=== PATIENT | female | born 1955 | race African-American/Black ===

== ENCOUNTER 2024-01-03 17:39 | Observation (INO) | payer OTHER ==
[2024-01-03 19:50] LABS: BASO % 1.2 % (0-2.0); EOS % 1.3 % (0-4.5); HEMATOCRIT 40.9 % (32.4-45.2); HEMOGLOBIN 14.4 GM/dL (10.7-15.3); LYMPH % 25.8 % (8-40); MCH 30.6 pg (25.7-33.7); MCHC 35.3 g/dl (32.0-36.0); MEAN CELL VOLUME 86.5 fl (80-96); MEAN PLT VOLUME 9.7 fl (7.5-11.1); MONO % 5.8 % (3.8-10.2); NEUT % 65.9 % (42.8-82.8); PLATELET COUNT 308 10^3/uL (134-434); RBC 4.72 M/mm3 (3.60-5.2)
[2024-01-03 19:58] LABS: INR 1.14 (0.83-1.09); PROTHROMBIN TIME (PATIENT) 13.2 SEC (9.7-13.0)
[2024-01-03 20:01] LABS: ACTIVATED PTT 30.9 SECONDS (25.2-36.5)
[2024-01-03 20:08] LABS: CHLORIDE 107 mmol/L (98-107); SODIUM 136 mmol/L (136-145)
[2024-01-03 20:10] LABS: ALBUMIN 3.8 g/dl (3.4-5.0); BLOOD UREA NITROGEN 12.1 mg/dL (7-18); CALCIUM 9.7 mg/dL (8.5-10.1); CO2 25 mmol/L (21-32); GLUCOSE,RANDOM 135 mg/dL (74-106)
[2024-01-03 20:13] LABS: CREATININE 0.9 mg/dL (0.55-1.3)
[2024-01-03 20:14] LABS: ANION GAP 4 mmol/L (4-13); POTASSIUM 7.5 mmol/L (3.5-5.1); SGOT/AST 99 U/L (15-37); SGPT/ALT 32 U/L (13-61)
[2024-01-03 20:15] LABS: BILIRUBIN,TOTAL 0.6 mg/dL (0.2-1); TOT PROT 8.2 g/dl (6.4-8.2)
[2024-01-03 20:16] LABS: ALK PHOS 77 U/L (45-117)
[2024-01-03] MEDS: FAMOTIDINE 20 MG/50 ML IVPB 20 MG/50 ML MG IVPB ONE ×2 (20:36→20:37)
[2024-01-03] MEDS ORDERED: FAMOTIDINE 20 MG TABLET ONE (20:38)
[2024-01-03] MEDS: FAMOTIDINE 10 MG TABLET PO ONE (20:43)
[2024-01-03 21:01] LABS: URINE APPEARANCE CLEAR; URINE BILIRUBIN NEGATIVE (NEGATIVE); URINE COLOR YELLOW; URINE GLUCOSE (UA) NEGATIVE (NEGATIVE); URINE KETONE 1+ (NEGATIVE); URINE LEUK ESTERASE NEGATIVE (NEGATIVE); URINE NITRITE NEGATIVE (NEGATIVE); URINE PROTEIN NEGATIVE (NEGATIVE); URINE UROBILINOGEN 0.2 mg/dL (0.2-1.0)
[2024-01-03 21:17] LABS: N-TERMINAL BNP 56.3 pg/ml (5-125)
[2024-01-03 21:19] LABS: POTASSIUM 3.8 mmol/L (3.5-5.1)
[2024-01-03 21:20] LABS: CALCIUM 9.7 mg/dL (8.5-10.1)
[2024-01-03 21:21] LABS: BLOOD UREA NITROGEN 10.5 mg/dL (7-18)
[2024-01-03 21:24] LABS: CREATININE 0.7 mg/dL (0.55-1.3)
[2024-01-04] MEDS ORDERED: MELATONIN 5 MG TABLETS ONE (01:30)
[2024-01-04] MEDS: MELATONIN 5 MG TABLETS PO ONE (01:35)
[2024-01-04 07:13] LABS: BASO % 0.6 % (0-2.0); EOS % 1.2 % (0-4.5); LYMPH % 29.3 % (8-40); MCH 30.3 pg (25.7-33.7); MCHC 35.1 g/dl (32.0-36.0); MEAN CELL VOLUME 86.5 fl (80-96); MEAN PLT VOLUME 9.4 fl (7.5-11.1); MONO % 7.9 % (3.8-10.2); PLATELET COUNT 181 10^3/uL (134-434); RBC 4.62 M/mm3 (3.60-5.2); RDW 13.3 % (11.6-15.6); WHITE BLOOD COUNT 8.6 K/mm3 (4.0-10.0)
[2024-01-04 08:02] LABS: POTASSIUM 3.8 mmol/L (3.5-5.1)
[2024-01-04 08:10] LABS: CALCIUM 9.6 mg/dL (8.5-10.1)
[2024-01-04 08:11] LABS: ALBUMIN 3.4 g/dl (3.4-5.0); BLOOD UREA NITROGEN 10.9 mg/dL (7-18); MAGNESIUM 1.9 mg/dL (1.8-2.4)
[2024-01-04 08:14] LABS: BILIRUBIN,TOTAL 0.7 mg/dL (0.2-1); CREATININE 0.7 mg/dL (0.55-1.3); TOT PROT 7.1 g/dl (6.4-8.2)
[2024-01-04] MEDS: ENOXAPARIN NA (PORCINE) 40 MG/0.4 ML DISP.SYRIN SQ SCH (10:53)
[2024-01-04] MEDS: LOSARTAN POTASSIUM 25 MG TABLET PO ONE (10:53)
[2024-01-04] MEDS: ASPIRIN COATED 81 MG TABLET.EC PO SCH (10:53)
[2024-01-04 11:09] VITALS: BMI 29.4
[2024-01-04] MEDS: LOSARTAN POTASSIUM 25 MG TABLET PO SCH (12:31)
[2024-01-04] MEDS: PANTOPRAZOLE 40 MG TABLET PO SCH (14:59)
[2024-01-04] MEDS: SODIUM CHLORIDE 1,000 ML IV SCH (15:00)
[2024-01-04] MEDS: MAG HYDROX/AL HYDROX/SIMETH 30 ML UNIT-DOSE CUP PO ONE (21:18)
[2024-01-04] MEDS: MELATONIN 5 MG TABLETS PO PRN (21:18)
[2024-01-04] MEDS: BRIMONIDINE TARTRATE 0.2% OPHTHALMIC 5 ML BOTTLE OU SCH (21:18)
[2024-01-04] MEDS: amLODIPine BESYLATE 5 MG TABLET (FP) PO SCH (21:19)
[2024-01-05 05:33] VITALS: RESP 18
[2024-01-05 07:16] LABS: HEMATOCRIT 36.4 % (32.4-45.2); MCH 30.6 pg (25.7-33.7); MCHC 35.6 g/dl (32.0-36.0); MEAN CELL VOLUME 85.9 fl (80-96); MEAN PLT VOLUME 8.8 fl (7.5-11.1); PLATELET COUNT 219 10^3/uL (134-434); RBC 4.24 M/mm3 (3.60-5.2); RDW 13.9 % (11.6-15.6); WHITE BLOOD COUNT 7.9 K/mm3 (4.0-10.0)
[2024-01-05 07:38] LABS: POTASSIUM 4.3 mmol/L (3.5-5.1)
[2024-01-05 07:46] LABS: ALBUMIN 3.1 g/dl (3.4-5.0); BLOOD UREA NITROGEN 11.2 mg/dL (7-18); CALCIUM 9.1 mg/dL (8.5-10.1)
[2024-01-05 07:49] LABS: CREATININE 0.7 mg/dL (0.55-1.3)
[2024-01-05 07:51] LABS: BILIRUBIN,TOTAL 0.6 mg/dL (0.2-1); TOT PROT 6.4 g/dl (6.4-8.2)
[2024-01-05] MEDS: MAG HYDROX/AL HYDROX/SIMETH 30 ML UNIT-DOSE CUP PO PRN (08:52)
[2024-01-05] MEDS: LOSARTAN POTASSIUM 25 MG TABLET PO SCH (09:32)
[2024-01-05 09:53] VITALS: BP 115/71; PULSE 74; TEMP 97.9
[2024-01-05] MEDS ORDERED: PANTOPRAZOLE SODIUM 40 MG VIAL IVPUSH SCH (10:00)
== END 2024-01-05 12:12 | disposition home or self-care (01) ==
LOC: JER 17:39 → UNDOADMOB 23:45 → JERBED 23:45 → OBSVTOIN 01-04 03:37 → INTOOBSV 01-04 03:37 → JERBED 01-04 09:36 → J4W 01-04 10:03
PROVIDERS: ADMIT Internal Medicine; ATTEND Internal Medicine
PROC: 3E023GC Introduction of Other Therapeutic Substance into Muscle, Percutaneous Approach (ICD-10-PCS; principal; 2024-01-04)
PROC: 3E0337Z Introduction of Electrolytic and Water Balance Substance into Peripheral Vein, Percutaneous Approach (ICD-10-PCS; 2024-01-04)
DX: I95.1 Orthostatic hypotension (principal); R00.2 Palpitations; K21.9 Gastro-esophageal reflux disease without esophagitis; R53.83 Other fatigue; I10 Essential (primary) hypertension; R39.198 Other difficulties with micturition; R20.8 Other disturbances of skin sensation; I45.10 Unspecified right bundle-branch block; Z90.79 Acquired absence of other genital organ(s)
CPT/HCPCS: 0241U-QW; 36415; 71045-TC-FY; 80048; 80053; 81003; 83735; 83880; 84100; 84436; 84443; 84484; 85025; 85027; 85379; 85610; 85730; 87086; 93005; 93010; 93306-TC; 96372; 99285-25; G0378

== ENCOUNTER 2024-01-25 03:15 | Observation (INO) | payer OTHER ==
[2024-01-25 03:22] VITALS: TEMP 97.8
[2024-01-25] MEDS ORDERED: ACETAMINOPHEN INJECTION 100 ML IVPB ONE (04:09)
[2024-01-25] MEDS ORDERED: MAG HYDROX/AL HYDROX/SIMETH 30 ML UNIT-DOSE CUP ONE ×4 (04:10→14:15)
[2024-01-25 04:40] LABS: BASO % 0.9 % (0-2.0); EOS % 1.1 % (0-4.5); HEMATOCRIT 42.8 % (32.4-45.2); HEMOGLOBIN 15.3 GM/dL (10.7-15.3); LYMPH % 22.2 % (8-40); MCHC 35.7 g/dl (32.0-36.0); MEAN CELL VOLUME 86.9 fl (80-96); MEAN PLT VOLUME 8.4 fl (7.5-11.1); MONO % 5.2 % (3.8-10.2); NEUT % 70.6 % (42.8-82.8); PLATELET COUNT 275 10^3/uL (134-434); RBC 4.93 M/mm3 (3.60-5.2); RDW 14.3 % (11.6-15.6); WHITE BLOOD COUNT 7.7 K/mm3 (4.0-10.0)
[2024-01-25] MEDS: MAG HYDROX/AL HYDROX/SIMETH 30 ML UNIT-DOSE CUP PO ONE (04:41)
[2024-01-25] MEDS: ACETAMINOPHEN 1000 MG/100 ML BAG IVPB ONE (04:42)
[2024-01-25 04:48] LABS: INR 1.05 (0.83-1.09); PROTHROMBIN TIME (PATIENT) 12.2 SEC (9.7-13.0)
[2024-01-25 04:50] LABS: ACTIVATED PTT 33.6 SECONDS (25.2-36.5)
[2024-01-25 05:00] LABS: ALBUMIN 3.8 g/dl (3.4-5.0); BLOOD UREA NITROGEN 9.7 mg/dL (7-18); CALCIUM 9.7 mg/dL (8.5-10.1)
[2024-01-25 05:03] LABS: CREATININE 0.8 mg/dL (0.55-1.3)
[2024-01-25 05:05] LABS: BILIRUBIN,TOTAL 0.6 mg/dL (0.2-1); TOT PROT 8.2 g/dl (6.4-8.2)
[2024-01-25 08:17] LABS: URINE APPEARANCE Error; URINE BILIRUBIN NEGATIVE (NEGATIVE); URINE COLOR YELLOW; URINE GLUCOSE (UA) NEGATIVE (NEGATIVE); URINE KETONE NEGATIVE (NEGATIVE); URINE LEUK ESTERASE NEGATIVE (NEGATIVE); URINE NITRITE NEGATIVE (NEGATIVE); URINE PROTEIN NEGATIVE (NEGATIVE); URINE UROBILINOGEN 0.2 mg/dL (0.2-1.0)
[2024-01-25] MEDS ORDERED: LOSARTAN POTASSIUM 25 MG TABLET ONE (08:33)
[2024-01-25 09:07] VITALS: RESP 19
[2024-01-25] MEDS: LOSARTAN POTASSIUM 25 MG TABLET PO SCH (09:15)
[2024-01-25] MEDS: ENOXAPARIN NA (PORCINE) 40 MG/0.4 ML DISP.SYRIN SQ SCH (09:15)
[2024-01-25] MEDS: MAG HYDROX/AL HYDROX/SIMETH -MYLANTA- ORAL SUSPENSION PO SCH (09:24)
[2024-01-25] MEDS ORDERED: FAMOTIDINE 10 MG TABLET PO SCH (10:00)
[2024-01-25] MEDS ORDERED: amLODIPine BESYLATE 5 MG TABLET (FP) PO SCH (10:00)
[2024-01-25 14:25] VITALS: BP 125/77; PULSE 72
== END 2024-01-25 16:52 | disposition home or self-care (01) ==
LOC: JER 03:15 → JERBED 05:51
PROVIDERS: ADMIT Internal Medicine; ATTEND Internal Medicine
PROC: 3E033NZ Introduction of Analgesics, Hypnotics, Sedatives into Peripheral Vein, Percutaneous Approach (ICD-10-PCS; principal; 2024-01-25)
PROC: 3E023GC Introduction of Other Therapeutic Substance into Muscle, Percutaneous Approach (ICD-10-PCS; 2024-01-25)
DX: R00.2 Palpitations (principal); I10 Essential (primary) hypertension; K21.9 Gastro-esophageal reflux disease without esophagitis; Z87.738 Personal history of other specified (corrected) congenital malformations of digestive system; I45.10 Unspecified right bundle-branch block; R53.83 Other fatigue; Z88.5 Allergy status to narcotic agent
CPT/HCPCS: 36415; 71045-TC-FY; 80053; 81003; 83690; 84484; 85025; 85610; 85730; 87086; 93005; 93010; 96372; 96374; 99285-25; G0378; J0131